=== PATIENT | female | born 1950 | race Caucasian/White ===

== ENCOUNTER 2020-05-05 12:13 | Inpatient (IN) | payer OTHER ==
[~2020-05-05] VITALS: Ht 165.1 cm; Wt 47.6 kg
--- NOTE | ~2020-05-05 | EMS ---
[facility] [address] [place] [address] EMS Patient Care Report Name: SHERMAN DELUCA Room #: PRE ER M.R.#: [id number] Admission: Attend Phys: Discharge: Date of : 50 Report #: [id number] THIS REPORT FOR: //name// Report Transmitted: 05/05/2020 11:53 EMS Care Summary [place], [place] Incident [id number] @ 05/05/2020 11:36 Incident Location [address] [place] [address] Patient SHERMAN DELUCA Female, 70 Years 1950 Patient Address [address] [place] [address] Patient History Ovarian/Uterine Cancer, Patient Allergies No known allergies, Patient Medications Oxycodone, Carvedilol, Disposition Transported No Lights/[place] Reason Hemorrhage/Laceration Transported To [facility] Narrative 37 ARRIVED ON SCENE. [facility] HAD ESTABLISHED PT CONTACT PRIOR TO EMS ARRIVAL. PT WAS A&O X4. PT HAD BLOOD IN HER CATHETER BAG. PT ALSO COMPLAINED OF MID TO LOW BACK PAIN DUE TO BEING BED RIDDEN. PT HAS HISTORY OF BLADDER CANCER. VITAL SIGNS WERE OBTAINED. PT RATED HER PAIN 10/10. PT STATED SHE HAD BEEN IN PAIN FOR SIX MONTHS. PT STATED HER BACK PAIN AND HEMATURIA HAD INCREASED OVER THE PAST FIVE DAYS. WHILE EN ROUTE TO [facility], PT VERBALIZED SI TO 37 MEDIC. PT STATED SHE, "HAD A PLAN TO SHOOT HERSELF [facility] [address] [place] [address] EMS Patient Care Report Name: SHERMAN DELUCA Room #: PRE ER M.R.#: [id number] Admission: Attend Phys: Discharge: Date of : 50 Report #: [id number] THE NIGHT BEFORE BUT COULD NOT GO THROUGH WITH IT." ARRIVED AT HOSPITAL. M537 INFORMED STAFF OF PT'S SI AND HER PLAN. PT WAS TRANSPORTED TO ER ROOM 5. SIDE RAILS WERE RAISED AND PT CARE WAS TRANSFERRED TO RECEIVING ER NURSING STAFF. Initial Vitals @11:59P: 124,Pain: 10/10,GCS: 15,CO: 5,SpO2: 84,NM Suspected: false @12:01P: 123,Pain: 10/10,GCS: 15,SpO2: 92,NM Suspected: false @11:59P: 123,R: 18,BP: 129/80,Pain: 10/10,GCS: 15,CO: 5,SpO2: 94,Revised Trauma: 12,NM Suspected: false @11:56P: 124,R: 18,BP: 119/65,Pain: 10/10,GCS: 15,CO: 5,SpO2: 94,Revised Trauma: 12,NM Suspected: false Assessments @11:44MENTAL:Person Oriented,Time Oriented,Event Oriented,Place Oriented,SKIN:HEENT:LUNG SOUNDS:General: Diarrhea,ABDOMEN:General: Diarrhea,PELVIS//GI:EXTREMITIES:PULSE:Radial: 2+ Normal,NEURO: Impression Cancer Procedures @11:44ALS AssessmentResponse: UnchangedSucceeded Timeline 11:33,Call Received 11:33,Dispatch Notified 11:36,Dispatched 11:37,En Route 11:43,On Scene 11:44,At Patient 11:44,ALS Assessment,Response: UnchangedSucceeded, 11:53,Depart Scene 11:56,BP: 119/65 M,PULSE: 124,RR: 18 R,SPO2: 94 Ox,ETCO2: ,BG: ,PAIN: 10,GCS: 15, 11:59,BP: / M,PULSE: 124,RR: R,SPO2: 84 Ox,ETCO2: ,BG: ,PAIN: 10,GCS: 15, 11:59,BP: 129/80 M,PULSE: 123,RR: 18 R,SPO2: 94 Ox,ETCO2: ,BG: ,PAIN: 10,GCS: 15, 12:01,BP: / M,PULSE: 123,RR: R,SPO2: 92 Ox,ETCO2: ,BG: ,PAIN: 10,GCS: 15, 12:08,At Destination 12:27,Call Closed Disclaimer v1.1 Copyright 2020 [employer] This EMS Care Summary contains data elements from the applicable legal record (which may be displayed differently). It is designed to provide pertinent information for the following purposes: continuity of care, clinical quality, [address] [address] EMS Patient Care Report Name: SHERMAN DELUCA Room #: PRE M.R.#: [id number] Admission: Attend Phys: Discharge: Date of : 50 Report #: [id number] and state data reporting. The complete legal record is available to ED staff and administrators of the receiving hospital in [facility] Patient Tracker. All data is provided "as is."
[2020-05-05 12:15] VITALS: BP 146/76
[2020-05-05 12:48] LABS: ABSOLUTE NEUTROPHILS 11.9 thou/uL (1.4-8.2); BASOPHILS 0.2 % (0.0-2.0); EOSINOPHILS 0.1 % (0.0-3.0); HEMATOCRIT 37.9 % (37.0-47.0); HEMOGLOBIN 11.7 gm/dL (12.0-15.0); LYMPHOCYTES 4.9 % (24.0-44.0); MCH 27.1 pg (26.0-34.0); MCHC 30.8 g/dL (28.0-37.0); PLATELET COUNT 510 thou/uL (150-400); POLYS 91.8 % (36.0-66.0); RDW 18.4 % (10.5-14.5)
[2020-05-05 13:05] LABS: CALCIUM 9.1 mg/dL (8.5-10.1); CREATININE 0.7 mg/dL (0.6-1.0); POTASSIUM 4.5 mmol/L (3.5-5.1)
[2020-05-05 13:10] LABS: TOTAL BILIRUBIN 0.8 mg/dL (0.2-1.0); TOTAL PROTEIN 7.5 g/dL (6.4-8.2)
[2020-05-05 13:21] LABS: ALBUMIN 1.5 g/dL (3.4-5.0)
[2020-05-05 13:58] LABS: ANISOCYTOSIS 1+
[2020-05-05 14:36] LABS: URINE BILIRUBIN 2+ (Negative); URINE BLOOD 3+ (Negative); URINE CLARITY TURBID; URINE COLOR BROWN; URINE GLUCOSE-RANDOM* TRACE (Negative); URINE KETONES 2+ (Negative); URINE PROTEIN (DIPSTICK) 3+ (Negative)
[2020-05-05 14:37] LABS: URINE LEUKOCYTES-REFLEX 3+ (Negative); URINE NITRITE-REFLEX POSITIVE (Negative)
[2020-05-05 14:38] LABS: ICTOTEST (BILI CONFIRMATORY) Negative (Negative)
[2020-05-05 14:54] LABS: URINE RBC >20 Many /HPF (0-2)
[2020-05-05 14:55] LABS: CASTS None Seen /LPF (None Seen); CRYSTALS None Seen /LPF (None Seen); MUCUS >6 Heavy strn/LPF (None Seen); SQUAMOUS 0-3 Few /LPF (0-3); URINE WBC-REFLEX 6-15 Few /HPF (0-5)
[2020-05-05 14:56] LABS: BACTERIA-REFLEX >30 Many /HPF (None Seen)
[2020-05-05 16:22] VITALS: BP 125/73
--- NOTE | 2020-05-05 16:35 | NUR ---
AFTER SPEAKING WITH RN LIAISON, THE PT WILL REMAIN IN THE ED UNTIL SHIFT CHANGE DUE TO NOT HAVING A SITTER.
[2020-05-05 16:58] LABS: TSH 0.633 uIU/mL (0.358-3.740)
--- NOTE | 2020-05-05 18:49 | NUR ---
ORACIO [phone]
[2020-05-05 19:07] VITALS: BP 128/63
--- NOTE | 2020-05-05 20:36 | NUR ---
PATIENT ADMITTED [facility] WITH UTI, PATIEN HAS DAILEY CATHTER IN PLACE, WITH BLOOD NOTED IN URINE. PATIENT C/O PAIN WITH ABDOMEN AREA AND MID-BACK AREA. 5/10 ON ABDOMEN AREA AND 3/10 ON MIDBACK AREA. PATIENT HAS MULTIPLE SCRATCHES ON BILATERAL ARMS, PATIENT STATES THE SCRATCHES ARE FROM HER DOG. PATIENT VERY TEARFUL ON ADMISSION TO THE UNIT, PATIENT HAS 1:1 SITTER IN THE ROOM WITH HER DUE TO SUICIDE ATTEMPT. PATIENT HAS LEFT JUGULAR IV WITH NS AT 125CC/HR. WILL REPORT OFF TO JAMIA, ADMISSION STARTED, BUT NOT COMPLETED. PATIENT ARRIVED ON THE UNIT AT 1935.
[2020-05-06 05:15] VITALS: BP 143/76
--- NOTE | 2020-05-06 07:50 | NUR ---
PROGRESS PT PAIN CONTROLLED WITH HYDROCODONE. DAILEY IN PLACE VERY OLD PT REPORTS IT HAS BEEN IN FOR MONTHS SINCE SHE LEFT HOSPICE SERVICE. DAILEY IS LEAKING SPOKE TO JANES STEPHENS ADVISED NOT TO REPLACE A TUMOR MAY BE BLOCKING INSERTION POINT. IV ANTIBIOTIC ADMINISTERED ORDERED CONTINUE POC.
--- NOTE | 2020-05-06 08:14 | EKG ---
[facility] [place] [address] ELECTROCARDIOGRAM REPORT Name: SHERMAN DELUCA Room #: 455- ADM IN M.R.#: [id number] Admission: 05/05/20 Attend Phys: Arnaldo Riggs Discharge: Date of : 50 Report #: [id number] THIS REPORT FOR: cc: BELA - Family physician unknown FAM - Family physician unknown Dustin Antoine MD [facility] ~ THIS REPORT FOR: //name// [facility] ED Test Date: 2020-05-05 Test Time: 14:08:13 Pat Name: SHERMAN DELUCA Department: Room: [facility] Gender: F Movers: radha chapin : 1950 Requested By: Samuel Adler Order Number: [id number] MD: Dustin Antoine Measurements Intervals [place] Rate: 115 P: 0 [place]: 102 QRS: 63 QRSD: 94 T: 86 QT: 309 QTc: 428 Interpretive Statements Sinus tachycardia Multiple premature complexes, vent & supraven Nonspecific T abnormalities, lateral leads Artifact in lead(s) I,II,III,aVR,aVL,aVF No previous ECG available for comparison Electronically Signed On 05-06-2020 8:13:10 CDT by Dustin Antoine [email or web address] <ELECTRONICALLY SIGNED> By: Dustin Antoine MD, [facility] 05/06/20 0813 1408 [id number] Dustin Antoine MD, [facility] /EPI
--- NOTE | 2020-05-06 11:23 | NUR ---
Assumed pt care at 7am.Pt in bed resting in bed with sitter at bs.Assessment completed.vss but elevated hr noted. was tearful when Dr Riggs told her about report from [facility] regarding metastasis cancer.Emotional support given.Pain patch applied.Pt took few bites of fried eggs and fruits served for breakfast.Pt assisted to bsc later this am for bm.wealth management manager to arrange for bed and other hospice equipments needed prior to dc home in the next 2 days.Pt in bed resting at present with sitter at bs.Will continue to monitor.
--- NOTE | 2020-05-06 14:33 | NUR ---
PT ADMITTED RELATED TO UTI AND SI. CM REVIEWED CHART AND SPOKE WITH CARE TEAM. CM HAD NURSE BRING PHONE IN TO PT FOR CM TO ASSESS HER. 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 SHE INIDCATED THAT THERE ARE 2 STEPS TO ENTER AND NO STEPS INSIDE. PT INICATED SHE HAS A FWW, BSC, AND A CANE FOR HOME USE. PT INDICATED HER PCP IS DR[facility] SH[facility]INER [facility]. PT INDICATED SHE HAD BEEN ON HOSPICE PRINTER SLOTTER OPERATOR BUT COULDN'T REMEMBER WHAT HOSPICE COMPANY. CM ASKED PT ABOUT HER SPOUSE AND IF HE WAS SAFE TO BE AT HOME ALONE DURING HER HOSPITALIZATION SHE INDICATED SHE DIDN'T LIKE IT BUT THAT THEY DIDN'T HAVE ANY SUPPORT. PT INDICATED PT'S BROTHER LIVES OUT OF STATE AND CAN'T COME HELP BUT WAS SENDING MONEY AND THAT SHE HAD TRIED CALLING A "GUILLERMINA" FOR HELP BUT HE HAD HUNG UP ON THEM. PT INIDCATED NO OTHER SUPPORT. CM CALLED PT'S SPOUSE ORACIO AND HE INIDCATED THAT HE WAS DOING OK GETTING ALONG BUT THAT HE MISSED HIS . HE WASN'T SURE IF PT HAD BEEN ON SERVICE WITH HOSPICE PRINTER SLOTTER OPERATOR. UNIT GOT A CALL FROM [facility]. PT HAD BEEN ON SERVICES WITH THEM PRINTER SLOTTER OPERATOR. CM CALLED AND SPOKE WITH JACOBO AT [facility] AND SHE INDICATED THAT PT HAD BEEN ADMITTED TO THEIR SERVICES 04/15 AND THAT THEY HAD SEEN PT IN THE HOME LAST /. THEY INDICATED THIS ISN'T THE FIRST TIME PT HAD GONE TO HOSPITAL INSTEAD OF CALLING [facility]. JANKI AIR BOATSWAIN AT [facility] WAS GOING TO CALL NURSE BEAVERS TO SPEAK WITH PT TO REITERATE GOALS OF CARE. [facility] CAN RESUME SERVICES UPON DC. PT INDICATED SI WITH PLAN AND ACCESS TO FIREARM IN THE HOME. WE ARE AWAITING PSYCH TO CONSULT. CM FOLLOWING REGARDING DC PLANNING.
[2020-05-06 19:46] VITALS: BP 148/66
--- NOTE | 2020-05-07 04:01 | NUR ---
ASSUMED PT CARE AROUND 1930. AXOX3 WITH OCCASIONAL CONFUSION AND FORGETFUL FOLLOWED BY IMPULSIVNESS TO LEAVE THE BED. KEEPS VERBALIZING THAT PT WANTS TO GO HOME TO HER . REMINDED PT THAT DISCHARGE WILL BE CONSIDERED IN AM ACCORDANCE WITH ATTENDING PHYSICIAN AND SW. CONTINUED TO BANG OBJECT AGAINST THE BED AND TRYING TO EXIT THE BED. CALLED RUTHANN PRAKASH INVESTIGATION DIVISION CAPTAIN FOR AND TRAVIS BLOUNT NOTED. WILL CONT TO MONITOR FOR ANY CHANGES IN CONDITION.
[2020-05-07 07:18] VITALS: BP 156/89
--- NOTE | 2020-05-07 12:56 | NUR ---
pt is very confused, agitated, thinks she is at home, c/o soa pt does have wheezes on auscultation, rt called for prn breathing treatment.
--- NOTE | 2020-05-07 16:01 | NUR ---
PT REVOKED [facility] THIS DAY. CM SENT CLINICAL UPDATE OVER TO THEM AND SPOKE WITH CHIN SHEARER WELL. HE INDICATED THAT PT'S SPOUSE IS ON PALLIATIVE CARE SERVISED THROUGH THEM AND THAT THEIR SW CAN DISCUSS GETTING RID OF GUNS WITH HIM TOMORROW, BUT THAT TECHNICALLY THEY WON'T HAVE PT ON SERVICE ANY LONGER. THEY INDICATED THAT THEY WOULD ACCEPT PT BACK. CM TO FOLLOW UP WITH THEM TO SEE TO WHAT TRANSPIRES WITH PT AND THE FIREARMS AND HOW CM MIGHT NEED TO ASSIST. NURSE INDICATED THAT PT IS MORE CONFUSED AND HALLUCINATING TODAY. CM FOLLOWING REGARDING DC PLANNING.
[2020-05-07 16:13] VITALS: BP 147/92
--- NOTE | 2020-05-07 16:26 | NUR ---
PT HAS BEEN C/O SOA THIS AFTERNOON, PRN TREATMENT WAS GIVEN, PT DENIED ANY EFFECT. PT PLACED ON 2L NC FOR COMFORT, SPO2 WAS 97% ON RA. PT STATES THAT SHE FEELS LIKE SHE IS GOING TO . PT MORE PALE THE DAY GOES ON AND HR NOW IN THE 130S. PAGED DR SORENSON.
[2020-05-07 17:33] LABS: HEMATOCRIT 30.6 % (37.0-47.0)
[2020-05-07 17:36] LABS: HEMOGLOBIN 9.7 gm/dL (12.0-15.0)
[2020-05-07 20:26] VITALS: BP 148/86
--- NOTE | 2020-05-08 07:26 | NUR ---
ASSUMED PT CARE AROUND 1945. AXOX3 WITH FREQUENT CONFUSION. HEAD CT COMPLETED AND REPORTED TO RUTHANN PRAKASH FIELD COUNSEL FOR . CARE TRANSFERRED TO AM RN AT THIS TIME.
[2020-05-08 08:01] VITALS: BP 128/62
--- NOTE | 2020-05-08 09:36 | NUR ---
Dr. Martin claimed that the patient told him that she did not want CPR, he would put the patient on "No Code.", Dr. Martin also stated that the patient would be placed on hospice. Dr. Martin asked the staff to inform the embedded case manager Karime Whalen. Priscila called, have not got response, will try again.
--- NOTE | 2020-05-08 11:56 | NUR ---
Patient breathing rate 28; using abdomen muscle breathing; claiming , " I feel horrible." BP: 148/86, O2:94% on 2L nasal canual. B. The staff keeps the pulse sensor with the patient, pulse not stable, from 30s [address] Dr Keely neil, nursing lunchroom food service supervisor has been reported to. The nursing lunchroom food service supervisor asked the staff to report it to the doctor. awaiting to talk to the doctor.
--- NOTE | 2020-05-08 12:14 | NUR ---
Dr. Torres ordered morphine 1 mg, PRN Q4, Iv.
[2020-05-08 14:28] VITALS: BP 127/56
[2020-05-08] MEDS ORDERED: MIRALAX17 GM PO (14:52)
[2020-05-08] MEDS ORDERED: TRAZODONE HCL100 MG PO (14:52)
[2020-05-08] MEDS ORDERED: SENNA-TIME S T1 EACH PO (14:52)
[2020-05-08] MEDS ORDERED: DEXAMETHASONE 44 M1 PO (14:52)
--- NOTE | 2020-05-08 15:15 | NUR ---
Bharati Atwood RN states," Keep IV access, keep martins catheter" when patient is discharged to her hospice institution.
--- NOTE | 2020-05-08 16:08 | NUR ---
Patient had a BM today, soft, brown, moderate volume. incontinent.
--- NOTE | 2020-05-08 16:15 | NUR ---
Report given to Francisco in the hospice facility: [facility] house [phone].
--- NOTE | 2020-05-08 17:54 | NUR ---
PT ACCEPTED FOR ADMISSION TO HOSPICE. PT AGREEABLE AND ABLE TO SIGN PAPERWORK ALONG WITH HER DNR FORM. [facility] ARRANGED FOR 4:30 TRANSPORT. [facility] SIGNED BY THE PT AND FAXED TO THEIR INTAKE. NURSING HAS GIVEN REPORT TO THE HOSPICE HOUSE. THE ATTENDING ALSO COSIGNED ADMISSION PAPERWORK ALONG WITH THE PT REQUESTED BY [facility].
== END 2020-05-08 17:12 | disposition hospice, home (50) | DRG 871 ==
LOC: ER 12:13 → EROBS 16:16 → 4W 16:16
PROVIDERS: Physician Assistant; ADMIT Hospitalist; ATTEND Hospitalist
DX: A41.9 Sepsis, unspecified organism (principal); E43 Unspecified severe protein-calorie malnutrition; N30.01 Acute cystitis with hematuria; R45.851 Suicidal ideations; C79.51 Secondary malignant neoplasm of bone; Z68.1 Body mass index [BMI] 19.9 or less, adult; C67.9 Malignant neoplasm of bladder, unspecified; I10 Essential (primary) hypertension; N30.90 Cystitis, unspecified without hematuria; F17.210 Nicotine dependence, cigarettes, uncomplicated; F43.20 Adjustment disorder, unspecified; K59.00 Constipation, unspecified; Z85.51 Personal history of malignant neoplasm of bladder; Z79.899 Other long term (current) drug therapy
CPT/HCPCS: 10047